=== PATIENT | female | born 1955 | race Caucasian/White ===

== ENCOUNTER 2019-05-15 12:04 | Emergency (ER) | payer BC ==
[2019-05-15] MEDS ORDERED: Sulfamethoxazole/Trimethoprim 800-160 MG Tab PO ONE (12:05)
[2019-05-15] MEDS ORDERED: Ondansetron 4 MG/2 ML SDV IVPUSH ONE ×2 (12:28→17:10)
[2019-05-15] MEDS ORDERED: Morphine 2 MG/ML Syringe IVPUSH ONE (12:29)
[2019-05-15] MEDS ORDERED: Sodium Chloride 0.9% 1,000 ML IV SCH (12:30)
[2019-05-15] MEDS ORDERED: Alum Hydroxide/Mag Hydroxide 15 ML, Lidocaine 2% 15 ML PO ONE ×2 (12:36)
[2019-05-15] MEDS: Sodium Chloride 0.9% 10 ML Syringe FLUSH PRN ×2 (12:38→17:43)
[2019-05-15] MEDS ORDERED: Verapamil 180 MG Tab.ER PO ONE (14:07)
[2019-05-15] MEDS ORDERED: Iopamidol 755 Mg/ML 100 ML Bottle IV ONE (14:28)
[2019-05-15] MEDS ORDERED: Ketorolac 30 MG/ML SDV IVPUSH ONE (17:10)
--- NOTE | 2019-05-15 17:10 | EDM.PDOC ---
ED HPI GENERAL MEDICAL PROBLEM - General Chief Complaint: Abdominal Pain Stated Complaint: BACK PAIN Time Seen by Provider: 05/15/19 18:20 Source of Information: Reports: Patient History Limitations: Reports: No Limitations - History of Present Illness INITIAL COMMENTS - FREE TEXT/NARRATIVE: Patient presented to the ED because of epigastric and RUQ pain which started last night after eating burger. The pain is sharp,8/10 with associated nausea but no vomiting, diarrhea or constipation. There is no associated fever or chills or urinary symptoms. back Pain Score (Numeric/FACES): 3 - Related Data Allergies Allergy/AdvReac Type Severity Reaction Status Date / Time ciprofloxacin [From Cipro] Allergy Abdominal Verified 05/15/19 12:18 Pain Home Meds: Home Meds Acetaminophen/HYDROcodone [Pendleton 325-5 MG] 1 - 2 tab PO Q6H PRN #15 tab [Rx] Fenofibrate,Micronized [Fenofibrate] 134 mg PO DAILY 05/15/19 [History] Ondansetron [Zofran ODT] 4 mg PO Q4H PRN #7 tab.dis 05/15/19 [Rx] Past Medical History Cardiovascular History: Reports: High Cholesterol ED ROS GENERAL - Review of Systems Review Of Systems: See Below Constitutional: Reports: No Symptoms HEENT: Reports: No Symptoms Respiratory: Reports: No Symptoms Cardiovascular: Reports: No Symptoms Endocrine: Reports: No Symptoms GI/Abdominal: Reports: Abdominal Pain, Nausea. Denies: Bloody Stool, Constipation, Diarrhea, Vomiting : Reports: No Symptoms Musculoskeletal: Reports: No Symptoms Skin: Reports: No Symptoms Neurological: Reports: No Symptoms ED EXAM, GI/ABD - Physical Exam Exam: See Below Exam Limited By: No Limitations General Appearance: Alert, No Apparent Distress Ears: Normal External Exam, Normal Canal, Hearing Grossly Normal Nose: Normal Inspection, Normal Mucosa Throat/Mouth: Normal Inspection, Normal Lips, Normal Teeth, Normal Gums Head: Atraumatic, Normocephalic Neck: Normal Inspection, Supple, Non-Tender, Full Range of Motion Respiratory/Chest: No Respiratory Distress, Lungs Clear, Normal Breath Sounds Cardiovascular: Normal Peripheral Pulses, Regular Rate, Rhythm, No Edema, No Gallop, No JVD, No Murmur GI/Abdominal Exam: Normal Bowel Sounds, Soft, Other (RUQ and epigastric T) Course - Vital Signs Text/Narrative:: Labs/CT abd/pelvis was discussed with patient and her and verbalized full understanding NS 1 L bolus zofran 4 mg IV x1 morphine 4 mg IV x1 toradol 30 mg IV x1 Last Recorded V/S: Last Vital Signs Temp 36.8 C 05/15/19 18:23 Pulse 94 05/15/19 18:23 Resp 17 05/15/19 18:23 BP 138/59 L 05/15/19 18:23 Pulse Ox 95 05/15/19 18:23 - Orders/Labs/Meds Orders: Active Orders 24 hr Category Date Time Status Abdomen Ltd [US] Stat Exams 05/15/19 15:57 Taken Abdomen Pelvis w Cont [CT] Stat Exams 05/15/19 14:11 Taken Saline Lock Insert [OM.PC] Routine Oth 05/15/19 12:27 Ordered Labs: Laboratory Tests 05/15/19 05/15/19 05/15/19 Range/Units 12:44 12:44 12:44 WBC 16.5 H (4.5-12.0) X10-3/uL RBC 4.96 (3.23-5.20) x10(6)uL Hgb 15.5 (11.5-15.5) g/dL Hct 46.4 (30.0-51.3) % MCV 93.4 (80-96) fL MCH 31.3 (27.7-33.6) pg MCHC 33.5 (32.2-35.4) g/dL RDW 11.9 (11.5-15.5) % Plt Count 363 (125-369) X10(3)uL MPV 7.5 (7.4-10.4) fL Add Manual Diff Yes Neutrophils % (Manual) 89 H (46-82) % Lymphocytes % (Manual) 10 L (13-37) % Monocytes % (Manual) 1 L (4-12) % Sodium 137 (135-145) mmol/L Potassium 3.6 (3.5-5.3) mmol/L Chloride 99 L (100-110) mmol/L Carbon Dioxide 24 (21-32) mmol/L BUN 12 (7-18) mg/dL Creatinine 0.8 (0.55-1.02) mg/dL Est Cr Clr Drug Dosing TNP Estimated GFR (MDRD) > 60 (>60) BUN/Creatinine Ratio 15.0 (9-20) Glucose 144 H (80-116) mg/dL Calcium 9.5 (8.6-10.2) mg/dL Total Bilirubin 0.4 (0.1-1.3) mg/dL AST 22 (5-25) IU/L ALT 40 H (12-36) U/L Alkaline Phosphatase 73 (56-112) IU/L Total Protein 8.2 H (6.0-8.0) g/dL Albumin 4.0 (3.2-4.6) g/dL Globulin 4.2 g/dL Albumin/Globulin Ratio 1.0 Amylase 38 (25-115) U/L Lipase 82 (73-393) U/L Urine Color (YELLOW) Urine Appearance (CLEAR) Urine pH (5.0-6.5) Ur Specific [place] (1.010-1.025) Urine Protein (NEGATIVE) mg/dL Urine Glucose (UA) (NORMAL) mg/dL Urine Ketones (NEGATIVE) mg/dL Urine Occult Blood (NEGATIVE) Urine Nitrite (NEGATIVE) Urine Bilirubin (NEGATIVE) Urine Urobilinogen (NEGATIVE) mg/dL Ur Leukocyte Esterase (NEGATIVE) Urine RBC (0-5) Urine WBC (0-5) Ur Squamous Epith Cells (NS,R,O) Urine Bacteria (NS) Urine Mucus (NS) 05/15/19 Range/Units 12:53 WBC (4.5-12.0) X10-3/uL RBC (3.23-5.20) x10(6)uL Hgb (11.5-15.5) g/dL Hct (30.0-51.3) % MCV (80-96) fL MCH (27.7-33.6) pg MCHC (32.2-35.4) g/dL RDW (11.5-15.5) % Plt Count (125-369) X10(3)uL MPV (7.4-10.4) fL Add Manual Diff Neutrophils % (Manual) (46-82) % Lymphocytes % (Manual) (13-37) % Monocytes % (Manual) (4-12) % Sodium (135-145) mmol/L Potassium (3.5-5.3) mmol/L Chloride (100-110) mmol/L Carbon Dioxide (21-32) mmol/L BUN (7-18) mg/dL Creatinine (0.55-1.02) mg/dL Est Cr Clr Drug Dosing Estimated GFR (MDRD) (>60) BUN/Creatinine Ratio (9-20) Glucose (80-116) mg/dL Calcium (8.6-10.2) mg/dL Total Bilirubin (0.1-1.3) mg/dL AST (5-25) IU/L ALT (12-36) U/L Alkaline Phosphatase (56-112) IU/L Total Protein (6.0-8.0) g/dL Albumin (3.2-4.6) g/dL Globulin g/dL Albumin/Globulin Ratio Amylase (25-115) U/L Lipase (73-393) U/L Urine Color Yellow (YELLOW) Urine Appearance Slightly cloudy (CLEAR) Urine pH 8.0 H (5.0-6.5) Ur Specific [place] 1.010 (1.010-1.025) Urine Protein 30 H (NEGATIVE) mg/dL Urine Glucose (UA) Normal (NORMAL) mg/dL Urine Ketones Negative (NEGATIVE) mg/dL Urine Occult Blood Large H (NEGATIVE) Urine Nitrite Negative (NEGATIVE) Urine Bilirubin Negative (NEGATIVE) Urine Urobilinogen Normal (NEGATIVE) mg/dL Ur Leukocyte Esterase Small H (NEGATIVE) Urine RBC >100 H (0-5) Urine WBC >100 H (0-5) Ur Squamous Epith Cells Few H (NS,R,O) Urine Bacteria Moderate H (NS) Urine Mucus Few H (NS) Meds: Medications Discontinued Medications Generic Name Dose Route Start Last Admin Trade Name Freq PRN Reason Stop Dose Admin Al Hydroxide/Mg Hydroxide 15 0 ml 05/15/19 12:36 05/15/19 12:44 ml/ Lidocaine HCl 15 ml PO 05/15/19 12:37 15 ml ONETIME ONE Administration Sodium Chloride 1,000 mls @ 999 mls/hr 05/15/19 12:30 05/15/19 12:38 Normal Saline IV 999 mls/hr ASDIRECTED ISAURA Administration Iopamidol 100 ml 05/15/19 14:28 05/15/19 14:42 Isovue-370 (76%) IV 05/15/19 14:29 100 ml . DIRECTED ONE Administration Ketorolac Tromethamine 30 mg 05/15/19 17:10 05/15/19 17:40 Toradol IVPUSH 05/15/19 17:11 30 mg ONETIME ONE Administration Morphine Sulfate 2 mg 05/15/19 12:29 05/15/19 12:38 Morphine IVPUSH 05/15/19 12:30 2 mg ONETIME ONE Administration Ondansetron HCl 4 mg 05/15/19 12:28 05/15/19 12:37 Zofran IVPUSH 05/15/19 12:29 4 mg ONETIME ONE Administration Ondansetron HCl 4 mg 05/15/19 17:10 05/15/19 17:40 Zofran IVPUSH 05/15/19 17:11 4 mg ONETIME ONE Administration Sodium Chloride 10 ml 05/15/19 12:27 05/15/19 17:43 Saline Flush FLUSH 10 ml ASDIRECTED PRN Administration Keep Vein Open Verapamil HCl 180 mg 05/15/19 14:07 05/15/19 14:14 Covera-Hs PO 05/15/19 14:08 Not Given ONETIME ONE Departure - Departure Time of Disposition: 17:30 Disposition: Home, Self-Care 01 Condition: Good Clinical Impression: UTI (urinary tract infection), Cholelithiasis - Discharge Information Prescriptions: Acetaminophen/HYDROcodone [[place] 325-5 MG] 1 - 2 tab PO Q6H PRN #15 tab PRN Reason: Pain Ondansetron [Zofran ODT] 4 mg PO Q4H PRN #7 tab.dis PRN Reason: Nausea Instructions: Cholelithiasis, Urinary Tract Infection, Adult Referrals: Shelby Dee [employer] [Primary Care Provider] - Forms: ED Department Discharge Additional Instructions: please read discharge instructions on UTI and gall bladder stone increase oral fluids avoid greasy foods norco/hydrocodone 1-2 tablets every 4-6 hours as needed for pain zofran ODT 4 mg every 4 hours as needed for nausea follow up this week Sepsis Event Note - Focused Exam Vital Signs: Vital Signs Temp Pulse Resp BP Pulse Ox 05/15/19 18:23 36.8 C 94 17 138/59 L 95 Date Exam was Performed: 05/15/19 Time Exam was Performed: 23:25 - My Orders Last 24 Hours: My Active Orders 05/15/19 12:27 Saline Lock Insert [OM.PC] Routine 05/15/19 14:11 Abdomen Pelvis w Cont [CT] Stat 05/15/19 15:57 Abdomen Ltd [US] Stat - Assessment/Plan Last 24 Hours: My Active Orders 05/15/19 12:27 Saline Lock Insert [OM.PC] Routine 05/15/19 14:11 Abdomen Pelvis w Cont [CT] Stat 05/15/19 15:57 Abdomen Ltd [US] Stat
[2019-05-15 20:53] VITALS: BP 138/59; PULSE 94
== END 2019-05-15 18:23 | disposition home or self-care (01) ==
LOC: FB.ED 12:04
DX: K80.20 Calculus of gallbladder without cholecystitis without obstruction (principal); N39.0 Urinary tract infection, site not specified; Z88.1 Allergy status to other antibiotic agents
CPT/HCPCS: 36415; 74177; 76705; 80053; 81001; 82150; 83690; 85025; 96361; 96374; 96375; 96376; 99284-25; A9270-GY; J1885; J2270; J2405; J7030; Q9967

== ENCOUNTER 2019-05-18 09:26 | Day surgery (SDC) | payer BC ==
[2019-05-18] MEDS ORDERED: Propofol 200 MG/20 ML SDV IV ONE (09:27)
[2019-05-18] MEDS ORDERED: Dexamethasone 4 MG/ML 5 ML MDV IVPUSH ONE (09:27)
[2019-05-18] MEDS ORDERED: fentaNYL 100 MCG/2 ML SDV IV ONE (09:27)
[2019-05-18] MEDS ORDERED: Glycopyrrolate 0.2 MG/ML 5 ML MDV IV ONE (09:27)
[2019-05-18] MEDS ORDERED: Neostigmine Methylsulfate 10 MG/10 ML MDV IVPUSH ONE (09:27)
[2019-05-18] MEDS ORDERED: Midazolam 1 MG/ML 2 ML SDV IV ONE (09:27)
[2019-05-18] MEDS ORDERED: HYDROmorphone 2 MG/ML SDV IV ONE (09:27)
[2019-05-18] MEDS ORDERED: Lidocaine 2% 5 ML SDV INJECT ONE (09:27)
[2019-05-18] MEDS ORDERED: Rocuronium 100 MG/10 ML MDV IV ONE (09:27)
[2019-05-18] MEDS ORDERED: Ondansetron 4 MG/2 ML SDV IVPUSH ONE (09:27)
[2019-05-18] MEDS ORDERED: Lactated Ringers 1,000 ML IV ONE (09:27)
[2019-05-18] MEDS ORDERED: Sodium Chloride 0.9% 10 ML Syringe FLUSH PRN (09:53)
[2019-05-18] MEDS ORDERED: Lactated Ringers 1,000 ML IV SCH (10:00)
--- NOTE | 2019-05-18 11:02 | PCM.HPR ---
H & P Addendum review - H & P Addendum Review Date of Original H & P: 05/17/19 Date Reviewed: 05/18/19 Time Reviewed: 11:02 Patient was Examined: No Changes
--- NOTE | 2019-05-18 11:58 | PCM.OPNOTE ---
- General Post-Op/Procedure Note Date of Surgery/Procedure: 05/18/19 Operative Procedure(s): Lap Lise Findings: Acute Cholecystitis/Cholelithiasis Pre Op Diagnosis: Above Post-Op Diagnosis: Same Anesthesia Technique: General ET Tube Primary Surgeon: Saul Cartagena Pathology: GallBladder EBL in mLs: 20 Complications: None Condition: Good
[2019-05-18] MEDS ORDERED: Acetaminophen/HYDROcodone 325-5 MG Tab PO PRN (12:01)
[2019-05-18] MEDS ORDERED: Morphine 2 MG/ML Syringe IVPUSH PRN (12:01)
--- NOTE | 2019-05-25 18:41 | OR ---
DATE OF OPERATION: 05/18/2019 SURGEON: Saul Cartagena MD PREOPERATIVE DIAGNOSES: Symptomatic cholelithiasis and cholecystitis. POSTOPERATIVE DIAGNOSES: Symptomatic cholelithiasis and cholecystitis. PROCEDURE: Laparoscopic cholecystectomy. ANESTHESIA: General. DESCRIPTION OF PROCEDURE: The patient was brought to the operating room, where general endotracheal anesthesia was administered. The abdomen was prepped with ChloraPrep and draped sterilely. An infraumbilical incision was made and extended into the peritoneal cavity without difficulty. The Kelvin cannulator was introduced, and pneumoperitoneum obtained. The remaining three 5 mm ports were placed in the usual positions. The patient was placed in reverse Trendelenburg position and rotated to the left. The gallbladder was grasped and had some filmy adhesions to its undersurface that were taken down. The gallbladder was then exposed completely. The peritoneum was incised, and the cystic duct and cystic artery dissected out with minimal difficulty. There was fair amount of edema but a little fibrosis. Cystic artery was doubly clipped proximally and once distally and then transected. The anatomy of the cystic duct was reconfirmed and could be seen entering the gallbladder and extending towards the common bile duct. This was doubly clipped proximally and once distally. The gallbladder was then removed from the bed of the liver with electrocautery without difficulty. Hemostasis was obtained. Gallbladder was brought out through the umbilical port site. A right upper quadrant was irrigated and inspected and return was clear and hemostasis assured. Ports were removed under direct vision and remained hemostatic. Umbilical fascia was closed with [id number] 0 Vicryl. The skin was closed with 4-0 Vicryl subcuticular sutures. Benzoin and Steri-Strips were placed, and Band-Aids applied. The patient tolerated the procedure well. ESTIMATED BLOOD LOSS: 20 mL. She returned to postanesthesia in stable condition. /[id number] BEBETO/CAROLYN
== END 2019-05-18 13:56 | disposition home or self-care (01) ==
LOC: FB.SDS 09:26 → FB.MS 09:26 → FB.SDS 09:27 → FB.MS 13:56 → FB.SDS 13:56
PROVIDERS: ATTEND Surgery
DX: K80.00 Calculus of gallbladder with acute cholecystitis without obstruction (principal)
CPT/HCPCS: 47562; 88304; 94150; A9270; J1100; J1170; J2001; J2250; J2405; J2704; J2710; J3010; J3490; J7120